=== PATIENT | male | born 1950 | race Native Hawaiian/Other Pacific Islander ===

== ENCOUNTER 2017-12-06 12:45 | Day surgery (SDC) | payer MEDICARE, MEDICAID ==
[2017-12-06] MEDS ORDERED: PROPOFOL 10 MG/ML VIAL IV ONE (12:46)
[2017-12-06] MEDS ORDERED: EPHEDRINE SULFATE 50 MG/ML ML IV ONE (12:46)
[2017-12-06] MEDS ORDERED: LIDOCAINE 2% MDV (20MG/ML) 20ML VIAL IV ONE (12:46)
--- NOTE | 2017-12-10 07:40 | Operative Note ---
DATE OF SURGERY: 12/06/2017 SURGEON: Jodi Lawson MD OPERATION: COLONOSCOPY. INDICATIONS: This is a 67-year-old male with history of hematochezia who presented for colonoscopy. POSTOPERATIVE DIAGNOSES: 1. Poor bowel preparation. 2. A 1.5 cm mass lesion in the rectosigmoid junction status post left with ink and snare polypectomy. 3. Otherwise incomplete colonoscopy to ascending colon. ANESTHESIA: Sedation is per Anesthesia. Pulse oximetry was monitored throughout the procedure to maintain O2 saturation of 90% or greater. Supplemental oxygen was administered via nasal cannula. Cardiac and vital signs were monitored throughout the duration of the procedure, and they were stable. The procedure of colonoscopy and risks and alternatives of the procedure, including the risk of bleeding and perforation, among others, were explained to the patient who voiced understanding and agreed to have the procedure done. Physical examination was performed, and the patient was found stable for sedation. PROCEDURE: The patient was placed in the left lateral position. Sedation was initiated. A digital rectal exam was performed and showed some mild external hemorrhoids with no palpable rectal masses. An Olympus PCF-180AL colonoscope was then inserted into the rectum under direct visualization. It was advanced to the proximal ascending colon with difficulty. The difficulty was due to redundancy of the sigmoid colon with badly functioning colonoscope. The colonoscope was then withdrawn while carefully examining the colonic mucosal surfaces. The ascending and transverse colon revealed no lesions. In the descending colon, there was a lot of stool debris, could not visualize any obvious mass lesions. In the rectum was a 6 mm sessile polyp that was noted and was removed by cold snare. The adjacent 1.5 cm polypoid lesion was again noted and this was raised with an ink spot and subsequently removed in a piecemeal fashion. The colonoscope was then withdrawn further and retroflexion was performed and grade 1 internal hemorrhoids were noted. The prep in the rectum was poor. The colonoscope was then straightened and withdrawn and the procedure was terminated. The patient tolerated the procedure well without any immediate complications. He remained with stable vital signs and was transferred to the recovery room. RECOMMENDATIONS: 1. I will follow up on the histology of the polyps. 2. He will need a repeat colonoscopy within 6 months with 2-day bowel preparation. Thank you for allowing me to participate in the care of your patient. [facility]
== END 2017-12-06 15:53 | disposition home or self-care (01) ==
LOC: HOP 12:45
PROVIDERS: ATTEND Internal Medicine Gastroenterology
DX: D12.2 Benign neoplasm of ascending colon (principal); D12.7 Benign neoplasm of rectosigmoid junction; K92.1 Melena; I10 Essential (primary) hypertension; E78.00 Pure hypercholesterolemia, unspecified

== ENCOUNTER 2017-12-20 10:38 | Emergency (ER) | payer MEDICARE, MEDICAID ==
--- NOTE | 2017-12-20 11:10 | Emergency Department Record ---
History of Present Illness - General Chief complaint: Rectal bleeding Stated complaint: RECTAL BLEED Time Seen by Provider: 12/20/17 10:47 Source: Patient, RN notes reviewed Mode of Arrival: Ambulatory - History of Present Illness Initial comments: rectal blood with BM today which was formed and constipated and had to push hard to get the stool out. Colonoscopy 2 weeks ago with a polp removal at [facility] Dr. Rodrigues. Onset/Timin -: Days(s) Severity scale (1-10): 1 Consistency: Constant - Related Data Home Medications Medication Instructions Recorded Confirmed Last Taken Aspirin [Aspir-Low] 81 mg PO DAILY 12/20/17 12/20/17 12/06/17 Atorvastatin Calcium 40 mg PO DAILY 12/20/17 12/20/17 1 Day Ago ~12/19/17 Clopidogrel Bisulfate [Plavix] 75 mg PO DAILY 12/20/17 12/20/17 12/06/17 Lisinopril 10 mg PO DAILY 12/20/17 12/20/17 1 Day Ago ~12/19/17 Metoprolol Succinate [Toprol Xl] 25 mg PO DAILY 12/20/17 12/20/17 1 Day Ago ~12/19/17 Previous Rx's Medication Instructions Recorded Hydrocortisone [Anusol-Hc] 1 apply RC BID #30 gm 12/20/17 Allergies Allergy/AdvReac Type Severity Reaction Status Date / Time No Known Drug Allergies Allergy Verified 12/20/17 10:59 Travel Screening - Travel/Exposure Within Last 30 Days Have you traveled within the last 30 days?: No - Travel/Exposure Within Last Year Have you traveled outside the [place] in the last year?: No - Additonal Travel Details Have you been exposed to anyone with a communicable illness?: No - Travel Symptoms Symptom Screening: None Review of Systems Reviewed: No additional complaints except as noted below Constitutional: Reports: As per HPI. Denies: Chills, Fever, Malaise, Night sweats, Weakness, Weight change Eyes: Reports: As per HPI. Denies: Eye discharge, Eye pain, Photophobia, Vision change ENT: Reports: As per HPI. Denies: Congestion, Dental pain, Ear pain, Epistaxis , Hearing loss, Throat pain Respiratory: Reports: As per HPI. Denies: Cough, Dyspnea, Hemoptysis, Stridor, Wheezes Cardiovascular: Reports: As per HPI. Denies: Arrhythmia, Chest pain, Dyspnea on exertion, Edema, Murmurs, Orthopnea, Palpitations, Paroxysmal nocturnal dyspnea, Rheumatic Fever, Syncope Endocrine: Reports: As per HPI. Denies: Fatigue, Heat or cold intolerance, Polydipsia, Polyuria Gastrointestinal: Reports: As per HPI, Hematochezia. Denies: Abdominal pain, Constipation, Diarrhea, Hematemesis, Melena, Nausea, Vomiting Genitourinary: Reports: As per HPI. Denies: Dysuria, Frequency, Hematuria, Incontinence, Retention, Testicular pain, Testicular mass, Urgency Musculoskeletal: Reports: As per HPI. Denies: Arthralgia, Back pain, Gout, Joint swelling, Myalgia, Neck pain Skin: Reports: As per HPI. Denies: Bruising, Change in color, Change in hair/ nails, Lesions, Pruritus, Rash Neurological: Reports: As per HPI. Denies: Abnormal gait, Confusion, Headache, Numbness, Paresthesias, Seizure, Tingling, Tremors, Vertigo, Weakness Psychiatric: Reports: As per HPI. Denies: Anxiety, Auditory hallucinations, Depression, Homicidal thoughts, Suicidal thoughts, Visual hallucinations Hematological/Lymphatic: Reports: As per HPI. Denies: Anemia, Blood Clots, Easy bleeding, Easy bruising, Swollen glands Past Medical History - SOCIAL HISTORY Smoking Status: Current every day smoker - RESPIRATORY Hx Respiratory Disorders: No - CARDIOVASCULAR Hx Cardio Disorders: Yes Hx Abnormal EKG: Yes (12/07) Hx Cardiac Cath: Yes (12/07 with stents) Hx Chest Pain: Yes (12/07, none since) Hx Heart Attack: Yes (STEMI) Hx Hypertension: Yes Comment:: high cholesterol - NEURO Hx Neuro Disorders: No - GI Hx GI Disorders: Yes Hx Reflux: Yes (occ after eating) Hx Rectal Bleeding: Yes (x 3 months on/off) - Hx Genitourinary Disorders: No - ENDOCRINE Hx Endocrine Disorders: No - MUSCULOSKELETAL Hx Musculoskeletal Disorders: No - PSYCH Hx Psych Problems: No - HEMATOLOGY/ONCOLOGY Hx Hematology/Oncology Disorders: No Family Medical History Any Significant Family History?: Yes Physical Exam - General General Appearance: Alert, Oriented x3, Cooperative, No acute distress - Head Head exam: Normal inspection - Eye Eye exam: Normal appearance, PERRL Pupils: Normal accommodation - ENT ENT exam: Normal exam, Mucous membranes moist, Normal external ear exam, Normal orophraynx, TM's normal bilaterally Ear exam: Normal external inspection. negative: External canal tenderness Nasal Exam: Normal inspection. negative: Discharge, Sinus tenderness Mouth exam: Normal external inspection, Tongue normal Teeth exam: Normal inspection. negative: Dental caries Throat exam: Normal inspection. negative: Tonsillar erythema, Tonsillar exudate - Neck Neck exam: Normal inspection, Full ROM. negative: Tenderness - Respiratory Respiratory exam: Normal lung sounds bilaterally. negative: Respiratory distress - Cardiovascular Cardiovascular Exam: Regular rate, Normal rhythm, Normal heart sounds - GI/Abdominal GI/Abdominal exam: Soft, Normal bowel sounds. negative: Tenderness - Rectal Rectal exam: Heme (+) stool, Other (brown stool , rectal area inflamed on the posterior left side of rectum.) - exam: Deferred - Extremities Extremities exam: Normal inspection, Full ROM, Normal capillary refill. negative: Tenderness - Back Back exam: Reports: Normal inspection, Full ROM. Denies: Muscle spasm, Rash noted, Tenderness - Neurological Neurological exam: Alert, Normal gait, Oriented X3, Reflexes normal - Psychiatric Psychiatric exam: Normal affect, Normal mood - Skin Skin exam: Dry, Intact, Normal color, Warm Course Vital Signs 12/20/17 10:50 Temperature 97.6 F Pulse Rate 83 Respiratory 18 Rate Blood Pressure 149/104 Pulse Ox 98 - Reevaluation(s) Reevaluation #1: reviewed his colonoscopy from 12/06/2017. tubular polyp 12/20/17 11:16 Medical Decision Making - Lab Data Result diagrams: 12/20/17 11:15 12/20/17 11:15 Disposition Clinical Impression: Rectal bleeding, Rectal fissure Disposition: Home, Self-Care Condition: (1) Good Instructions: Anal Fissure (ED) Additional Instructions: follow up with family in 4-5 days colace 100 mg twice a day Prescriptions: Hydrocortisone [Anusol-Hc] 1 apply RC BID #30 gm Forms: Patient Portal Access Time of Disposition: 11:52 Quality - Quality Measures Quality Measures: N/A - Blood Pressure Screening Does Patient Have Any of the Following: No Blood Pressure Classification: Hypertensive Reading Systolic Measurement: 149 Diastolic Measurement: 104 Screening for High Blood Pressure: < Pre-Hypertensive BP, F/U Documented > [ [id number]] Pre-Hypertensive Follow-up Interventions: Referral to alternative/primary care provider.
[2017-12-20 11:22] LABS: BASO % 0.4 % (0-6); EOS % 1.8 % (0-6); HEMATOCRIT 45.7 % (42.0-52.0); HEMOGLOBIN 14.9 gm/dl (14.0-18.0); MEAN CELL VOLUME 90.1 fl (81-97); MEAN CORPUSCULAR HEMOGLOBIN 29.4 pg (27-33); MEAN CORPUSCULAR HGB CONC 32.6 g/dl (32-36); MONO % 9.8 % (0-9); PLATELET COUNT 350 K/uL (130-400); RED BLOOD COUNT 5.07 M/uL (4.40-5.70); RED CELL DISTRIBUTION WIDTH 14.3 % (11.5-14.5); WHITE BLOOD COUNT W/O DIFF 8.5 K/uL (4.2-12.2)
[2017-12-20 11:30] LABS: BLOOD UREA NITROGEN 17 mg/dL (8-23); EST GLOMERULAR FILTRATION RATE > 60 mL/min
[2017-12-20 11:33] LABS: GLUCOSE,RANDOM 115 mg/dL (74-109)
== END 2017-12-20 12:04 | disposition home or self-care (01) ==
LOC: ER 10:38
DX: K60.2 Anal fissure, unspecified (principal); I10 Essential (primary) hypertension; I25.2 Old myocardial infarction; F17.210 Nicotine dependence, cigarettes, uncomplicated
CPT/HCPCS: 80048; 82272; 85025; 99283

== ENCOUNTER 2019-06-05 07:50 | Day surgery (SDC) | payer MEDICARE, MEDICAID ==
[2019-06-05] MEDS ORDERED: PROPOFOL 10 MG/ML VIAL IV ONE (07:51)
[2019-06-05] MEDS ORDERED: LIDOCAINE 2% MDV (20MG/ML) 20ML VIAL IV ONE (07:51)
--- NOTE | 2019-06-10 10:41 | Operative Note ---
SURGEON: Jodi Lawson MD OPERATION: COLONOSCOPY. INDICATIONS: This is a 69-year-old male who had recent history of significant colon polyp with suboptimal bowel preparation who presented for repeat colonoscopy; however, he took the prep without stopping his Plavix. POSTOPERATIVE DIAGNOSES: 1. A flat 2-3 cm lesion in the cecum. 2. A 3 mm sessile polyp in the ascending colon that was removed by cold biopsy forceps. 3. Poor bowel preparation. Cannot exclude any significant lesions. 4. Grade 1 internal hemorrhoids. ANESTHESIA: Sedation is per Anesthesia. Pulse oximetry was monitored throughout the procedure to maintain O2 saturation of 90% or greater. Supplemental oxygen was administered via nasal cannula. Cardiac and vital signs were monitored throughout the duration of the procedure, and they were stable. The procedure of colonoscopy and risks and alternatives of the procedure, including the risk of bleeding and perforation, among others, were explained to the patient who voiced understanding and agreed to have the procedure done. Physical examination was performed, and the patient was found stable for sedation. PROCEDURE: The patient was placed in the left lateral position. Sedation was initiated. A digital rectal exam was performed and showed some mild external hemorrhoids with no palpable rectal masses. An Olympus PCF-180AL colonoscope was then inserted into the rectum under direct visualization. It was advanced to the cecum without difficulty. The ileocecal valve and appendiceal orifice were identified and photographed. The colonic mucosa was carefully examined upon introduction of the colonoscope. There was solid stool debris in the sigmoid, descending, and ascending colon. In the sigmoid colon was an approximately 1 cm sessile polyp that was noted and was not removed because of the recent intake of Plavix. In the ascending colon was a 3 mm sessile polyp that was noted and was removed by cold biopsy forceps. In the cecum was a flat lesion that was noted. The area was inked with no immediate complications. The colonoscope was then withdrawn while carefully examining the colonic mucosal surfaces. No other gross lesions were noted. In the rectum, retroflexion was performed and grade 1 internal hemorrhoids were noted. The colonoscope was then withdrawn and the procedure was terminated. The patient tolerated the procedure well without any immediate complications. The patient remained with stable vital signs and was transferred to the recovery room. RECOMMENDATIONS: The patient is to have a 2-day bowel preparation and reschedule the colonoscopy with the intention of polypectomy by way of EMR at that time. Thank you for allowing me to participate in the care of your patient. MATILDA
== END 2019-06-05 09:40 | disposition home or self-care (01) ==
LOC: HOP 07:50
PROVIDERS: ATTEND Internal Medicine Gastroenterology
DX: Z09 Encounter for follow-up examination after completed treatment for conditions other than malignant neoplasm (principal); Z86.010 Personal history of colon polyps; D12.2 Benign neoplasm of ascending colon; K63.5 Polyp of colon; K63.9 Disease of intestine, unspecified; K64.0 First degree hemorrhoids; I10 Essential (primary) hypertension; E78.00 Pure hypercholesterolemia, unspecified; R60.9 Edema, unspecified

== ENCOUNTER 2019-07-03 09:48 | Day surgery (SDC) | payer MEDICARE, MEDICAID ==
[2019-07-03] MEDS ORDERED: PROPOFOL 10 MG/ML VIAL IV ONE (09:49)
[2019-07-03] MEDS ORDERED: LIDOCAINE 2% MDV (20MG/ML) 20ML VIAL IV ONE (09:49)
--- NOTE | 2019-07-07 08:10 | Operative Note ---
SURGEON: Jodi Lawson MD OPERATION: COLONOSCOPY. INDICATIONS: This is a 69-year-old male who has history of colon polyps and recently had a colonoscopy for surveillance that was poor bowel preparation and presented after 2-day prep for repeat colonoscopy. POSTOPERATIVE DIAGNOSES: 1. A 1.5 cm flat polyp in the ascending colon in the midst of large solid stool debris that was inked. 2. An 8 mm sigmoid colon polyp that was removed by cold snare. 3. Very poor bowel preparation especially in the right colon precluding complete evaluation. ANESTHESIA: Sedation is per Anesthesia. Pulse oximetry was monitored throughout the procedure to maintain O2 saturation of 90% or greater. Supplemental oxygen was administered via nasal cannula. Cardiac and vital signs were monitored throughout the duration of the procedure, and they were stable. The procedure of colonoscopy and risks and alternatives of the procedure, including the risk of bleeding and perforation, among others, were explained to the patient who voiced understanding and agreed to have the procedure done. Physical examination was performed, and the patient was found stable for sedation. PROCEDURE: The patient was placed in the left lateral position. Sedation was initiated. A digital rectal exam was performed and showed some mild external hemorrhoids with no palpable rectal masses. An Olympus PCF-180AL colonoscope was then inserted into the rectum under direct visualization. It was advanced to the cecum without difficulty. The ileocecal valve and appendiceal orifice were identified and photographed. The colonic mucosa was carefully examined upon introduction of the colonoscope. In the sigmoid colon was an 8 mm sessile polyp that was noted and in the distal descending colon, transverse colon, and ascending colon there was significant solid stool debris that was noted. In the ascending colon was what looks like a flat polypoid lesion but with the solid stool debris, cannot excise it, so this was marked with Brooke ink. The rest of the colonic mucosa was grossly normal. The colonoscope was then withdrawn while carefully examining the colonic mucosal surfaces. No other lesions were noted. The sigmoid colon polyp was removed with cold snare. In the rectum, retroflexion was performed and grade 2 internal hemorrhoids were noted. The colonoscope was then withdrawn and the procedure was terminated. The patient tolerated the procedure well without any immediate complications. The patient remained with stable vital signs and was transferred to the recovery room. RECOMMENDATIONS: The patient should be on a low-residue diet and we will give him a modified 2-day prep to repeat the colonoscopy with a polypectomy for the ascending colon polyp. Thank you for allowing me to participate in the care of your patient. MATILDA
== END 2019-07-03 12:10 | disposition home or self-care (01) ==
LOC: HOP 09:48
PROVIDERS: ATTEND Internal Medicine Gastroenterology
DX: Z09 Encounter for follow-up examination after completed treatment for conditions other than malignant neoplasm (principal); D12.5 Benign neoplasm of sigmoid colon; Z91.19 Patient's noncompliance with other medical treatment and regimen; I10 Essential (primary) hypertension; E78.00 Pure hypercholesterolemia, unspecified; R60.9 Edema, unspecified

== ENCOUNTER 2019-08-07 09:49 | Day surgery (SDC) | payer MEDICARE, MEDICAID ==
[2019-08-07] MEDS ORDERED: PROPOFOL 10 MG/ML VIAL IV ONE ×2 (09:50)
[2019-08-07] MEDS ORDERED: LIDOCAINE 2% MDV (20MG/ML) 20ML VIAL IV ONE (09:50)
--- NOTE | 2019-08-11 06:02 | Operative Note ---
DATE OF SERVICE: 08/07/2019. DATE OF SURGERY: 08/07/2019 REQUESTING PROVIDER: Flex Rick MD. SURGEON: Jodi Lawson MD. POSTOPERATIVE DIAGNOSES: 1. Better but still suboptimal bowel preparation all the way to the hepatic flexure. 2. Four 2-3 mm sessile polyps in the rectum that were removed by cold biopsy forceps. OPERATION: COLONOSCOPY. INDICATION FOR PROCEDURE: This is a 69-year-old male with history of average risk for colorectal cancer, who has attempted colonoscopy twice, but with severe poor bowel preparation. Had 3-day bowel preparation and presents now for repeat colonoscopy. SEDATION: Sedation is per Anesthesia. Pulse oximetry was monitored throughout the duration of the procedure to maintain O2 saturation of 90% or greater. Supplemental oxygen was administered via nasal cannula. Cardiac and vital signs were monitored throughout the duration of the procedure and they were stable. PROCEDURE: The procedure of colonoscopy, risks and alternatives to the procedure, including the risks of bleeding and perforation, among others, were explained to the patient. He voiced understanding and agrees to have the procedure done. Physical examination was performed and the patient was found stable for sedation. The patient was then placed in the left lateral position and sedation was initiated. Digital rectal exam was performed and showed small external hemorrhoids with no palpable rectal masses. A lubricated Olympus PCF1 80AL colonoscope was then inserted into the rectum and under direct visualization. The colonic mucosa was carefully examined upon introduction of the colonoscope. The bowel preparation was poor. The colonoscope could not be advanced beyond the hepatic flexure because of the poor prep. The colonoscope was then withdrawn while carefully reexamining the colonic mucosal surfaces. Attempts to reevaluate the colonic mucosa were unsuccessful, especially in the hepatic flexure and the transverse colon. The sigmoid colon and the descending colon prep appeared fair with adequate visualization with no lesions noted. In the rectum were 4 2-3 mm size polyps that were noted. They were removed by cold biopsy forceps. The colonoscope was then withdrawn and the procedure was terminated. The patient tolerated the procedures well without immediate complications. PLAN AND RECOMMENDATIONS: I will see him in the office and treat his constipation and repeat the colonoscopy within a year. Thank you for allowing me to participate in the care of your patient. MATILDA
== END 2019-08-07 12:35 | disposition home or self-care (01) ==
LOC: HOP 09:49
PROVIDERS: ATTEND Internal Medicine Gastroenterology
DX: Z09 Encounter for follow-up examination after completed treatment for conditions other than malignant neoplasm (principal); Z86.010 Personal history of colon polyps; K62.1 Rectal polyp; Z91.19 Patient's noncompliance with other medical treatment and regimen; I10 Essential (primary) hypertension; Z79.01 Long term (current) use of anticoagulants; E78.00 Pure hypercholesterolemia, unspecified